=== PATIENT | female | born 1945 | race Caucasian/White ===

== ENCOUNTER 2022-01-25 15:06 | Inpatient (IN) | payer MEDICARE, BC ==
[~2022-01-25] VITALS: Ht 154.9 cm; Wt 56.7 kg
--- NOTE | 2022-01-25 16:15 | NUR ---
PT IS AT BEDSIDE WITH SPOUSE. PT IS EXTREMELY ANXIOUS AND NOT ALLOWING FOR MEDICAL CLEARANCE PROCESS SUCH EKG, BLOOD DRAW OR URINE COLLECTION. REASSURANCE PROVIDED BUT NOT TRUSTING STAFF. VERY PARANOID AT THIS TIME.
[2022-01-25] MEDS ORDERED: LOSA50TA39 PO (16:19)
[2022-01-25] MEDS ORDERED: LEVO100T10 PO (16:19)
[2022-01-25] MEDS ORDERED: LEVO88TA5 PO (16:19)
[2022-01-25] MEDS ORDERED: MIRT-121 PO (16:19)
[2022-01-25 17:13] LABS: *BILIRUBIN,URIN NEGATIVE (NEGATIVE); *CLARITY,URINE CLEAR (CLEAR); *COLOR,URINE YELLOW (YELLOW); *KETONES,URINE TRACE (NEGATIVE); *UROBILINOGEN,URINE 0.2 E.U./dl (NORMAL); LEUKOCYTE ESTERASE ,URINE 1+ (NEGATIVE); NITRITE, URINE NEGATIVE (NEGATIVE); PH,URINE 5.5 (5.0-8.0); UGLUCOSE NEGATIVE (NEGATIVE)
[2022-01-25 17:15] LABS: *BLOOD, URINE TRACE (NEGATIVE)
[2022-01-25 17:25] LABS: *AMPHETAMINE, URINE NEGATIVE (NEGATIVE); *CANNABINOID, URINE NEGATIVE (NEGATIVE); *COCCAINE, URINE NEGATIVE (NEGATIVE); *OPIATE, URINE NEGATIVE (NEGATIVE); *PHENCYCLIDINE SCREEN,URINE NEGATIVE (NEGATIVE)
--- NOTE | 2022-01-25 17:58 | NUR ---
Pt is medically cleared by Dr Gresham. Spoke to Zafar green [facility] for psych eval.
[2022-01-25] MEDS ORDERED: LORAZEPAM 0.5 MG TABLET PO ONE (18:00)
[2022-01-25 18:30] LABS: CARBON DIOXIDE 30 mmol/L (21-32); CHLORIDE 103 mmol/L (98-107); CREATININE 0.8 mg/dL (0.6-1.3); GLUCOSE 108 mg/dL (74-106); UREA NITROGEN, BLOOD 23 mg/dL (7-18)
[2022-01-25 18:31] LABS: HEMATOCRIT 45.1 % (31.2-41.9); MEAN CORPUSCULAR HEMOGLOBIN 32.2 uug (24.7-32.8); PLATELET COUNT (AUTO) 280 K/uL (179-408)
[2022-01-25 18:36] LABS: ETHANOL < 3 MG/DL (0-0)
[2022-01-25 18:37] LABS: ALANINE AMINOTRANSFERASE 32 U/L (14-59); ALKALINE PHOSPHATASE 90 U/L (50-136); ASPARTATE AMINOTRANSFERASE 29 U/L (15-37); BILIRUBIN,DIRECT 0.1 mg/dL (0.0-0.2); BILIRUBIN,TOTAL 0.6 mg/dL (0.2-1.0); TOTAL PROTEIN, SERUM 7.5 g/dL (6.4-8.2)
[2022-01-25 18:40] LABS: ACETAMINOPHEN < 2.0 ug/mL (10-30)
[2022-01-25 18:44] LABS: THYROID STIMULATING HORMONE 8.385 mIU/mL (0.358-3.740)
--- NOTE | 2022-01-25 19:09 | NUR ---
EKG performed. NSR
[2022-01-25] MEDS ORDERED: LORAZEPAM 1 MG TABLET ONE (19:47)
--- NOTE | 2022-01-25 20:02 | NUR ---
DANIE FROM THE CRISIS TEAM PLACED PATIENT ON A 5150 HOLD FOR GD.
--- NOTE | 2022-01-25 20:49 | NUR ---
PATIENT WAS TAKEN TO [facility] VIA WHEELCHAIR BY [facility] MANAGER OF REGULATORY AFFAIRS MEMBER WITH NO DISTRESS NOTED.
[2022-01-25 20:55] LABS: BACTERIA,URINE FEW /HPF (NONE SEEN); CALCIUM OXALATE CRYSTALS,UR MA /HPF (NONE SEEN); SQUAMOUS EPITHELIAL CELL,UR NONE SEEN /HPF (NONE SEEN); URINE AMORPHOUS URATE MODERATE /HPF
[2022-01-25 21:00] VITALS: BP 164/81
[2022-01-25] MEDS ORDERED: ACETAMINOPHEN 325 MG TABLET PO PRN (21:30)
[2022-01-25] MEDS ORDERED: MAG HYDROX/AL HYDROX/SIMETH 30 ML LIQUID UDC PO PRN (21:30)
[2022-01-25] MEDS ORDERED: LORAZEPAM 1 MG TABLET PO PRN (21:30)
[2022-01-25] MEDS ORDERED: MAGNESIUM HYDROXIDE 30 ML LIQUID UDC PO PRN (21:30)
--- NOTE | 2022-01-25 21:30 | NUR ---
Dr Romero was notified of patient's admission, he stated he will reconciled her medication tomorrow morning. pt calm and cooperative. V/S stable. She is no distress. PO fluids and snacks are given to patient. will continue to monitor.
--- NOTE | 2022-01-25 22:00 | NUR ---
ADMISSION NOTE: ADMITTED AT APPROX 205, A 76 YEARS OLD FEMALE TO [facility] ON A 5150 FOR GD. PATIENT LIVES AT HOME WITH HER AND SON. PER HOLD, FAMILY STATED THAT PATIENT HAS BEEN INCREASINGLY ANXIOUS, CONFUSED AND AGGRESSIVE. DURING CRISIS TEAM ASSESSMENT, PATIENT STATED THAT SHE IS BEEN EXPERIENCING SEVERE ANXIETY. HER HOLD WILL ON 01/28/22 AT 1930. UPON ADMISSION, PATIENT IS NOTED A/O X 3 ABLE TO AMBULATED WITH STEADY GAIT AND ABLE TO VERBALIZED HER FEELINGS. FACE TO FACE ASSESSMENT WAS DONE, PATIENT REFLECTS WHAT IS WRITTEN ON THE HOLD. SHE STATED THAT SHE IS BEEN HAVING SEVERE ANXIETY SINCE HER AND FAMILY ARE PLANNING FOR A LONG ROAD TRIP. PATIENT DENIED SI/HI/VH/AH. SHE EXPRESSES MILD DEPRESSION AND SHE STATED SHE TAKES REMERON FOR IT AND FOR SLEEP. PATIENT WAS GIVEN HER ADVISEMENT WELL HER BOOKLET FOR PATIENT'S RIGHTS WHEN IN MENTAL HEALTH FACILITIES. PATIENT WAS INFORMED OF THE UNIT RULES ROOM AND ROOMMATE. ALL HER BELONGINGS WERE INVENTORIED AND A SECURED LOCK CABINET. WILL CONTINUE WITH Q15 MIN CHECKS
[2022-01-26] MEDS: CEphaleXIN 500 MG CAPSULE PO SCH ×3 (07:11→20:58)
[2022-01-26 07:30] VITALS: BP 149/83
[2022-01-26 08:20] LABS: THYROID STIMULATING HORMONE 10.987 mIU/mL (0.358-3.740)
[2022-01-26] MEDS: ESCITALOPRAM OXALATE 10 MG TABLET PO SCH (09:08)
[2022-01-26] MEDS: LEVOTHYROXINE SODIUM 88 MCG TABLET PO SCH (09:08)
[2022-01-26] MEDS: LOSARTAN POTASSIUM 50 MG TABLET PO SCH (09:08)
--- NOTE | 2022-01-26 13:15 | NUR ---
Firearms Report: Tobacco Baler completed and submitted a [employer] firearms report for 5150 grave disability certifications. A copy of report has been placed in patient chart.
--- NOTE | 2022-01-26 15:09 | NUR ---
CLINT Initial Discharge Note Pt currently resides at [address] [place] [id number] with her . Pt expressed she would like to be discharged home. Pt's spouse and pt's daughter both expressed they will be ready for pt to ultimately discharge home when she is stable and able to accept help from her family. CLINT will continue to work with pt, family, and MD to ensure a safe and proper discharge plan.
--- NOTE | 2022-01-26 15:10 | NUR ---
SW Family Contact SW spoke with pt's spouse (Uriah) and pt's daughter (Celestina) and discussed treatment and discharge plan. Uriah and Celestina provided collateral information. Celestina stated pt's spouse is pt's DPOA and this SW requested copies. Pt expressed she would like to be discharged home. Pt's spouse and pt's daughter both expressed they will only be ready for pt to ultimately discharge home when she is stable and able to accept help from her family.
[2022-01-26 15:30] VITALS: BP 117/54
--- NOTE | 2022-01-26 16:13 | NUR ---
Received patient sleeping in her room. Pt. is smiley, pleasantly confused, forgetful, cooperative with nursing care, and compliant with medications. Patient ambulates independently, self care. Reassurance given. Fall and safety precautions implemented.
[2022-01-26 20:23] VITALS: BP 154/79
--- NOTE | 2022-01-26 20:30 | NUR ---
RECEIVED PATIENT IN THE HALLWAY. PATIENT NOTED A/O X 3 ABLE TO AMBULATE WITH STEADY GAIT AND ABLE TO VERBALIZED HER FEELINGS. PATIENT STATED THAT SHE IS FEELING LESS ANXIOUS LESS STRESS; HOWEVER, SHE APPEARS TO MINIMIZE HER SYMPTOMS. SHE STATED THAT SHE IS AFRAID SHE WILL NOT BE ABLE TO SLEEP TONIGHT. PATIENT WAS REASSURED AND REDIRECTED. SHE WAS REASSURED FOR HER SAFETY. SAFETY AND FALL PRECAUTIONS ARE IN PLACE. SHE WAS GIVEN PO FLUIDS AND SNACKS. V/S STABLE WILL CONTINUE TO MONITOR.
[2022-01-26] MEDS: MIRTAZAPINE 15 MG TABLET PO SCH (20:36)
--- NOTE | 2022-01-27 04:05 | NUR ---
patient was noted walking on the main hallway, she was noted anxious and disoriented. she stated, "you need to call my family, you don't understand. i need to call my family, they need to know where i am". she was oriented to reality she was also reassured for her safety and she was helped bach to bed. she was offered an Ativan but she refused at this time. will continue to monitor.
[2022-01-27] MEDS: LEVOTHYROXINE SODIUM 88 MCG TABLET PO SCH (05:44)
[2022-01-27] MEDS: CEphaleXIN 500 MG CAPSULE PO SCH ×3 (05:44→21:02)
--- NOTE | 2022-01-27 07:04 | NUR ---
patient slept for approx 7.15 hrs through the night, she was noted with mood swings, she was noted smiling and laughing for no apparently reason then she became sad and was asking to go home, "i am not supposed to be here". patient was oriented to reality. will continue to monitor,
[2022-01-27 07:30] VITALS: BP 151/87
[2022-01-27] MEDS: ESCITALOPRAM OXALATE 10 MG TABLET PO SCH (08:31)
[2022-01-27] MEDS: LOSARTAN POTASSIUM 50 MG TABLET PO SCH (08:32)
[2022-01-27 15:42] VITALS: BP 151/71
--- NOTE | 2022-01-27 16:39 | NUR ---
Patient is calm, cooperative, friendly, confused at times, disorganized. A/O X 2 to person, place. Patient is compliant with medications. Reassurance given. Fall and safety precautions implemented.
--- NOTE | 2022-01-27 16:52 | NUR ---
Patient refuses CT scan because she claims to be claustrophobic.
[2022-01-27 19:56] VITALS: BP 158/82
[2022-01-27] MEDS: MIRTAZAPINE 15 MG TABLET PO SCH (21:02)
[2022-01-27] MEDS: hydrALAZINE HCL 25 MG TABLET PO PRN (21:02)
--- NOTE | 2022-01-27 23:06 | NUR ---
GPS: Pt. refused to have her blood pressure re-checked at this time despite explanation of importance. Denies PENNY,dizziness nor any c/o pain offered. Fall precautions in place.
[2022-01-28] MEDS: CEphaleXIN 500 MG CAPSULE PO SCH ×3 (06:07→21:03)
[2022-01-28] MEDS: LEVOTHYROXINE SODIUM 88 MCG TABLET PO SCH (06:07)
[2022-01-28 07:30] VITALS: BP 153/77
[2022-01-28] MEDS: GABAPENTIN 100 MG CAPSULE PO SCH ×3 (09:21→17:04)
[2022-01-28] MEDS: ESCITALOPRAM OXALATE 10 MG TABLET PO SCH (09:22)
[2022-01-28] MEDS: LOSARTAN POTASSIUM 50 MG TABLET PO SCH (09:22)
[2022-01-28 17:23] VITALS: BP 149/91
--- NOTE | 2022-01-28 18:18 | NUR ---
Gps/Supervisor Component Assembler- Tends to hang out by the Nurses station , encouraged participation in her group therapy, refused to put on her regular clothes more comfortable using the hospital gown per pt. .
[2022-01-28] MEDS: MIRTAZAPINE 15 MG TABLET PO SCH (20:30)
[2022-01-28 20:43] VITALS: BP 152/78
--- NOTE | 2022-01-29 04:24 | NUR ---
Remain in bed all night. Continent of bowel and bladder. Tolerated po meds well. No behavioral issues noted. No signs of agitation or restless behavior noted. VSS no complaints presented during shift.
[2022-01-29] MEDS: CEphaleXIN 500 MG CAPSULE PO SCH ×3 (05:34→21:13)
[2022-01-29] MEDS: LEVOTHYROXINE SODIUM 88 MCG TABLET PO SCH (05:35)
[2022-01-29 07:30] VITALS: BP 161/98
[2022-01-29] MEDS: ESCITALOPRAM OXALATE 10 MG TABLET PO SCH (09:29)
[2022-01-29] MEDS: LOSARTAN POTASSIUM 50 MG TABLET PO SCH (09:29)
[2022-01-29] MEDS: CLONAZEPAM 0.5 MG TABLET PO SCH ×2 (09:30→16:35)
[2022-01-29] MEDS: GABAPENTIN 100 MG CAPSULE PO SCH ×3 (09:30→16:35)
--- NOTE | 2022-01-29 14:57 | NUR ---
CLINT Family Contact: CLINT called to return voice mail from pt's daughter, Celestina Alvarado, to discuss updates to treatment and discharge plan. Provided pt's daughter with resource for Family Caregiver Support Program ([phone]) and [facility] ([phone]) caregiving product manufacturing professional. CLINT provided pt's daughter with handout regarding hiring in home help.
[2022-01-29 16:00] VITALS: BP 167/87
[2022-01-29 20:00] VITALS: BP 155/73
[2022-01-29] MEDS: MIRTAZAPINE 15 MG TABLET PO SCH (20:24)
[2022-01-30] MEDS: LEVOTHYROXINE SODIUM 100 MCG TABLET PO SCH (05:51)
[2022-01-30] MEDS: CEphaleXIN 500 MG CAPSULE PO SCH ×3 (05:51→21:27)
--- NOTE | 2022-01-30 06:05 | NUR ---
GPS: Remain calm and cooperative with meds and care. slept 9 hrs through the night. resting in bed at this time. no agitation noted. continue plan of care.
[2022-01-30 07:56] VITALS: BP 152/79
[2022-01-30] MEDS: ESCITALOPRAM OXALATE 10 MG TABLET PO SCH (08:54)
[2022-01-30] MEDS: CLONAZEPAM 0.5 MG TABLET PO SCH ×2 (08:54→16:25)
[2022-01-30] MEDS: GABAPENTIN 100 MG CAPSULE PO SCH ×3 (08:54→16:24)
[2022-01-30] MEDS: LOSARTAN POTASSIUM 50 MG TABLET PO SCH (08:54)
--- NOTE | 2022-01-30 14:12 | NUR ---
GPS: Nursing Notes: Excessive Anxiety: Patient is awake and responding to her name, disoriented time at this time, forgetful, paranoid behavior, resistant to be compliant with her medications, believes that there is nothing wrong with her, redirected and reoriented during shift, impaired judgment, unable to formulate a viable plan for self care, gets easily anxious when redirected, continue to monitor for safety, continue with treatment plan.
[2022-01-30 16:18] VITALS: BP 152/81
[2022-01-30 19:54] VITALS: BP 145/71
[2022-01-30] MEDS: MIRTAZAPINE 15 MG TABLET PO SCH (20:28)
[2022-01-31] MEDS: CEphaleXIN 500 MG CAPSULE PO SCH ×3 (05:49→22:03)
[2022-01-31] MEDS: LEVOTHYROXINE SODIUM 100 MCG TABLET PO SCH (05:49)
--- NOTE | 2022-01-31 06:32 | NUR ---
GPS: Remain calm and cooperative with meds and care. slept 6.45 hrs through the night. resting in bed at this time. no agitation noted. continue plan of care.
[2022-01-31] MEDS: HYDROXYZINE PAMOATE 25 MG CAPSULE PO PRN (07:22)
[2022-01-31] MEDS: hydrALAZINE HCL 25 MG TABLET PO PRN (07:37)
[2022-01-31 07:51] VITALS: BP 165/98
[2022-01-31] MEDS: LOSARTAN POTASSIUM 50 MG TABLET PO SCH (08:19)
[2022-01-31] MEDS: ESCITALOPRAM OXALATE 10 MG TABLET PO SCH (08:20)
[2022-01-31] MEDS: GABAPENTIN 100 MG CAPSULE PO SCH ×3 (08:20→16:36)
[2022-01-31] MEDS: CLONAZEPAM 0.5 MG TABLET PO SCH ×2 (08:20→16:36)
[2022-01-31 16:11] VITALS: BP 151/76
--- NOTE | 2022-01-31 16:55 | NUR ---
GPS: Nursing Notes: Excessive Anxiety: Patient is awake and responding to her name, disorganized, gets easily anxious when redirected, impaired judgment, resistant with nursing care, believes that there is nothing wrong with her, needs a lot of prompting to be compliant with her medications, refusing to shower, stated "I don't know what to do..", redirected and reoriented during shift, unable to formulate a viable plan for self care, stated "I am going to here..", encourage to vent feelings, anxious affect, continue to monitor for safety, continue with treatment plan.
[2022-01-31 20:04] VITALS: BP 133/64
[2022-01-31] MEDS: MIRTAZAPINE 15 MG TABLET PO SCH (21:07)
[2022-01-31] MEDS: ZOLPIDEM 5 MG TABLET PO PRN (22:03)
[2022-02-01] MEDS: LEVOTHYROXINE SODIUM 100 MCG TABLET PO SCH (06:11)
[2022-02-01] MEDS: CEphaleXIN 500 MG CAPSULE PO SCH ×3 (06:11→21:29)
[2022-02-01] MEDS: LEVOTHYROXINE SODIUM 88 MCG TABLET PO SCH (07:16)
[2022-02-01 07:46] VITALS: BP 138/75
[2022-02-01] MEDS: ESCITALOPRAM OXALATE 10 MG TABLET PO SCH (08:30)
[2022-02-01] MEDS: GABAPENTIN 100 MG CAPSULE PO SCH ×3 (08:30→17:09)
[2022-02-01] MEDS: LOSARTAN POTASSIUM 50 MG TABLET PO SCH (08:31)
--- NOTE | 2022-02-01 11:28 | NUR ---
PC Hearing: Patient had 5250 probable cause hearing on 02/01/22 and it was upheld for grave disability.
--- NOTE | 2022-02-01 12:42 | NUR ---
CLINT Family Contact: SW called and spoke with pt's daughter, Celestina Alvarado ([phone]) and discussed discharge plan updates. Family is actively working on hiring a caregiver for pt upon discharge.
--- NOTE | 2022-02-01 14:59 | NUR ---
GPS: Nursing Notes: Excessive Anxiety: Patient is awake and responding to her name, poor impulse control, gets easily anxious when redirected, very resistant to be compliant with her medications, needs a lot of prompting to be compliant with her medications, depressed mood and anxious affect, feeling hopeless, stating "I don't know what to do...", continue to monitor for safety, unable to formulate a viable plan for self care, continue with treatment plan.
[2022-02-01 16:06] VITALS: BP 153/80
[2022-02-01 20:00] VITALS: BP 129/63
[2022-02-01] MEDS: MIRTAZAPINE 15 MG TABLET PO SCH (20:37)
[2022-02-02] MEDS: HYDROXYZINE PAMOATE 25 MG CAPSULE PO PRN (04:28)
--- NOTE | 2022-02-02 05:06 | NUR ---
GPS NOTES: Patient received awake in room, A&0x3. Ambulatory with steady gait. Patient requires prompting when taking medications as she is reasoning out not to take it. Patient states "I am taking too much medications and it is not helping me". Educate patient that med compliance is very important for a medications to work. Patient is very anxious and awake most of the night. Offered PRN Ambien but she refused. Encourage Relaxation and diversion technique to help patient with anxiety. Patient sleeping on and off as noted. @0455 she was on the edge of the bed, crying and making statements "I am done", "I just want to " "Let me go, and I somewherez". Assure patient to be in a safe environment. Vistaril was given as ordered. Safety strategies in place. Suicide precaution at place.
[2022-02-02] MEDS: LEVOTHYROXINE SODIUM 88 MCG TABLET PO SCH (05:52)
[2022-02-02 07:30] VITALS: BP 168/94
[2022-02-02] MEDS ORDERED: GABAPENTIN 100 MG CAPSULE PO SCH (07:45)
[2022-02-02] MEDS: LORAZEPAM 1 MG TABLET PO PRN ×2 (08:10→10:37)
[2022-02-02] MEDS: hydrALAZINE HCL 25 MG TABLET PO PRN (08:10)
[2022-02-02] MEDS: LOSARTAN POTASSIUM 50 MG TABLET PO SCH (08:15)
[2022-02-02] MEDS: ESCITALOPRAM OXALATE 10 MG TABLET PO SCH (08:15)
--- NOTE | 2022-02-02 10:07 | NUR ---
GPS: Nursing Notes: Excessive Anxiety: Patient is awake and responding to her name, poor impulse control, gets easily anxious when redirected, shouting "I am not going to take medications.. I am done.. the medications are not helping me..", explained the pros and cons of medications, needs a lot of prompting to be compliant with her medications, unable to formulate a viable plan for self care, continue to monitor for safety, continue with treatment plan.
[2022-02-02 16:42] VITALS: BP 136/71
[2022-02-02 20:00] VITALS: BP 119/63
[2022-02-02] MEDS: MIRTAZAPINE 15 MG TABLET PO SCH (20:27)
[2022-02-02] MEDS: GABAPENTIN 300 MG CAPSULE PO SCH (20:28)
[2022-02-02] MEDS: ZOLPIDEM 5 MG TABLET PO PRN (20:31)
[2022-02-03] MEDS: LEVOTHYROXINE SODIUM 88 MCG TABLET PO SCH (06:21)
--- NOTE | 2022-02-03 06:21 | NUR ---
Patient slept 7.30 hours last night. No notable anxiety during the shift. Safety Stratiges are in place. Education about stress management techniques briefly discussed along with reassurance.
[2022-02-03 07:30] VITALS: BP 129/80
[2022-02-03] MEDS: LOSARTAN POTASSIUM 50 MG TABLET PO SCH (09:15)
[2022-02-03 16:00] VITALS: BP 149/78
[2022-02-03] MEDS: LORAZEPAM 1 MG TABLET PO PRN (17:18)
--- NOTE | 2022-02-03 17:18 | NUR ---
Pt showing s/s of depression. Crying intermittently while walking the halls. Expressed increased anxiety and depressed thoughts of being here. Wants to leave. Educated on the purpose of her being here, and how she's doing. Gave Ativan 1mg po prn for anxiety relief. Will continue to monitor.
[2022-02-03 19:53] VITALS: BP 144/66
[2022-02-03] MEDS: GABAPENTIN 300 MG CAPSULE PO SCH (21:51)
[2022-02-03] MEDS: MIRTAZAPINE 15 MG TABLET PO SCH (21:51)
[2022-02-03] MEDS: ZOLPIDEM 5 MG TABLET PO PRN (21:52)
--- NOTE | 2022-02-04 04:42 | NUR ---
Received patient by the nurse's station, with an artificially bright smile. This is contrary to what was endorsed by the day shift. Other than a few questions about her medications, patient willingly took the medications with a snack. Total sleep hours have been eight so far. Fortunately, this chart writer was able to spend some time, at the start of the shift, educating the patient about stress management techniques. This patient verbalized understanding, which is an improvement from the previous zoo keeper. No acute distress or anxiety noted at this time.
[2022-02-04] MEDS: LEVOTHYROXINE SODIUM 88 MCG TABLET PO SCH (06:42)
[2022-02-04 07:30] VITALS: BP 159/83
[2022-02-04] MEDS: LOSARTAN POTASSIUM 50 MG TABLET PO SCH (08:27)
--- NOTE | 2022-02-04 11:49 | NUR ---
Gps/Sample Steamer- Had been compliant with her am medications, observed patient attending her group therapy, interacts when engaged. less fidgety , less anxious .
--- NOTE | 2022-02-04 13:31 | NUR ---
CLINT Discharge Update: CLINT called pt's psychiatrist Dr. Terence Pizarro's office ([phone]) and spoke with Elizabeth to schedule follow-up appt. Elizabeth informed pt's has scheduled appt on 02/22/22 at 2:30pm at [address] [facility] [address], [place] [address]. CLINT called pt's PCP Dr. Baldo Harris's office ([phone]) and spoke with Elizabeth to schedule post-discharge appt. Elizabeth Harris is scheduled out until May; however, Janet project scheduler will call back to assist with scheduling earlier appt. CLINT called and left voice mail for pt's therapist, Kamar Helton LCSW ([phone]) requesting call back to schedule follow-up appt.
[2022-02-04] MEDS: LORAZEPAM 1 MG TABLET PO PRN (15:48)
[2022-02-04 16:46] VITALS: BP 164/92
[2022-02-04 20:40] VITALS: BP 159/89
[2022-02-04] MEDS: MIRTAZAPINE 15 MG TABLET PO SCH (21:17)
[2022-02-04] MEDS: GABAPENTIN 300 MG CAPSULE PO SCH (21:17)
[2022-02-04] MEDS: ZOLPIDEM 5 MG TABLET PO PRN (21:21)
--- NOTE | 2022-02-05 03:12 | NUR ---
This patient was very anxious at the start of the shift. This pattern chart writer spent a good amount of time active listening and discussing the unfounded fears she was having. One of them being taking a shower. This patient had not showered for the last 6 days. After a lot of reassurance and promises of assistance, the patient agreed to shower , without incident. Patient then showed apprehension when it was time to take her medications. It is a possibility, based on the patients behavior and attitude, that she will not be medication compliant upon discharge. Also noted, there seems to be a significant portion of paranoia integrated into her anxiety. When these anxiety episode occur, the patient gets fixated on the worst case scenarios in life and the " What if ? " questions dominate the conversations. However, she eventually took the medications and was calm and quite pleasant. Safety Stratiges remain in place . This pattern chart writer will continue to monitor the patient for medication compliance. Educate and encourage her on coping skills and techniques,along with providing comfort and reassurance when needed.
[2022-02-05] MEDS: LEVOTHYROXINE SODIUM 88 MCG TABLET PO SCH (06:44)
[2022-02-05 07:30] VITALS: BP 152/77
[2022-02-05] MEDS: LOSARTAN POTASSIUM 50 MG TABLET PO SCH (08:43)
--- NOTE | 2022-02-05 11:10 | NUR ---
Gps/Leather Goods Assembler- Observed patient, attending/participating her group therapy, interacting with her peers, compliant with her routine am meds. Making her simple needs, known. .Less anxious , redirectable .
[2022-02-05 17:27] VITALS: BP 169/92
[2022-02-05 20:31] VITALS: BP 169/86
[2022-02-05] MEDS: diphenhydrAMINE 50 MG CAPSULE PO PRN (20:45)
[2022-02-05] MEDS: MELATONIN 3 MG TABLET PO SCH (20:45)
[2022-02-05] MEDS: GABAPENTIN 300 MG CAPSULE PO SCH (20:46)
[2022-02-05] MEDS: MIRTAZAPINE 15 MG TABLET PO SCH (20:46)
--- NOTE | 2022-02-06 03:09 | NUR ---
The patient was having an anxiety attack at the start of the shift d/t having a room mate. The patient did not want a room mate because she was " Afraid of her " and " She is going to steal my cloths". The room mate was not aggressive, combative or intimidating in any way shape or form, nevertheless this patient congers up reasons to validate her paranoia and anxiety. This machine sign writer moved the patient out in order to prevent further reasons for this patient to be stressed out. Literally anything and everything makes her upset, scared, anxious , confused or all of the above. Safety Stratiges in place.
[2022-02-06] MEDS: LEVOTHYROXINE SODIUM 100 MCG TABLET PO SCH (06:24)
[2022-02-06 07:43] VITALS: BP 153/95
[2022-02-06] MEDS: LOSARTAN POTASSIUM 50 MG TABLET PO SCH (08:05)
[2022-02-06 16:05] VITALS: BP 168/43
[2022-02-06] MEDS: hydrALAZINE HCL 25 MG TABLET PO PRN (16:17)
[2022-02-06] MEDS: LORAZEPAM 1 MG TABLET PO PRN (17:53)
[2022-02-06] MEDS: GABAPENTIN 300 MG CAPSULE PO SCH (21:46)
[2022-02-06] MEDS: MIRTAZAPINE 15 MG TABLET PO SCH (21:46)
[2022-02-06] MEDS: MELATONIN 3 MG TABLET PO SCH (21:46)
[2022-02-06 21:49] VITALS: BP 163/91
--- NOTE | 2022-02-06 22:18 | NUR ---
Patient still expressed evidence of being a little anxious and worried. Patient still asks and needs to know what is going on around her via asking about other patients that she has no relationship with and has never even spoke to. Pt was also worried about having trouble sleeping. After explaining that she is taking Melatonin as a sleeping aid medication, this nurse also advised/encouraged her on closing her door for the night to keep the noise in the hallway from disrupting her sleep.
[2022-02-07] MEDS: LEVOTHYROXINE SODIUM 100 MCG TABLET PO SCH (06:48)
[2022-02-07 07:57] VITALS: BP 169/86
[2022-02-07] MEDS: hydrALAZINE HCL 25 MG TABLET PO PRN (07:59)
[2022-02-07] MEDS: LOSARTAN POTASSIUM 50 MG TABLET PO SCH (09:05)
[2022-02-07 16:08] VITALS: BP 149/82
[2022-02-07] MEDS: LORAZEPAM 1 MG TABLET PO PRN (16:42)
--- NOTE | 2022-02-07 17:45 | NUR ---
Gps/Yarn Comber- Gets extremely anxious, at this time, , needed encouragement to take her prn ativan, reviewed routine medications with her , patient thinks she's taking too much medications . Patient was able to relax after taking her prn ativan .
[2022-02-07 20:00] VITALS: BP 126/74
[2022-02-07] MEDS: GABAPENTIN 300 MG CAPSULE PO SCH (20:44)
[2022-02-07] MEDS: MIRTAZAPINE 15 MG TABLET PO SCH (20:45)
[2022-02-07] MEDS: diphenhydrAMINE 50 MG CAPSULE PO PRN (20:45)
[2022-02-07] MEDS: MELATONIN 3 MG TABLET PO SCH (20:45)
[2022-02-08] MEDS: LEVOTHYROXINE SODIUM 100 MCG TABLET PO SCH (06:29)
[2022-02-08] MEDS: LEVOTHYROXINE SODIUM 88 MCG TABLET PO SCH (06:42)
[2022-02-08 07:45] VITALS: BP 135/78
[2022-02-08] MEDS: LOSARTAN POTASSIUM 50 MG TABLET PO SCH (08:38)
--- NOTE | 2022-02-08 10:27 | NUR ---
SW Family Contact: SW spoke with pt's daughter, Celestina Alvarado ([phone]) and discussed discharge plan updates. Celestina stated that she discussed with the doctor regarding her fathers positive covid test. Celestina asked for pt to stay at the hospital for additional days to give their family time for safe arrangements. This SW expressed she will discuss with Dr. Andujar regarding pt's current status and if it is needed to continue hospitalizing the pt for her well-being. Celestina is aware pt has an anticipated discharge date for this Tuesday or . Celestina stated she understands if the pt is doing well and need to discharge as well. This SW stated she will follow-up with Celestina and her father, Uriah ([facility]) ([phone]) prior to discharge.
--- NOTE | 2022-02-08 15:49 | NUR ---
GPS: Nursing Notes: Excessive Anxiety: Patient is awake and responding to her name, compliant with her medications, gets easily anxious when redirected, but following staff directions, gets preoccupied with her roommate destructive behavior, poor impulse control, constantly coming to the nursing station and telling staff what her roommate is doing, redirected during shift, unable to formulate a viable plan for self care, continue to monitor for safety, continue with treatment plan.
[2022-02-08 16:08] VITALS: BP 148/85
[2022-02-08 20:35] VITALS: BP 168/90
[2022-02-08] MEDS: GABAPENTIN 300 MG CAPSULE PO SCH (20:47)
[2022-02-08] MEDS: MELATONIN 3 MG TABLET PO SCH (20:47)
[2022-02-08] MEDS: MIRTAZAPINE 15 MG TABLET PO SCH (20:47)
[2022-02-08] MEDS: diphenhydrAMINE 50 MG CAPSULE PO PRN (20:47)
[2022-02-09] MEDS: LEVOTHYROXINE SODIUM 100 MCG TABLET PO SCH ×2 (06:22→06:35)
[2022-02-09] MEDS: LEVOTHYROXINE SODIUM 88 MCG TABLET PO SCH (06:42)
[2022-02-09 07:30] VITALS: BP 167/89
[2022-02-09] MEDS: LOSARTAN POTASSIUM 50 MG TABLET PO SCH (08:26)
[2022-02-09] MEDS: LORAZEPAM 1 MG TABLET PO PRN (08:26)
[2022-02-09] MEDS: hydrALAZINE HCL 25 MG TABLET PO PRN ×2 (08:27→20:45)
[2022-02-09 16:46] VITALS: BP 122/80
--- NOTE | 2022-02-09 16:57 | NUR ---
GPS: Nursing Notes: Excessive Anxiety: Pt is Awake and A&O x 4. Pt is cooperative with care management. Pt became increasingly anxious regarding her medication regiment, but has agreed to take them. Pt's anxiety has decreased once she had switched rooms to 145. Pt is unable to formulate a plan for self care. Will continue to monitor for safety and monitor treatment plan.
[2022-02-09 20:19] VITALS: BP 167/86
[2022-02-09] MEDS: MIRTAZAPINE 15 MG TABLET PO SCH (20:29)
[2022-02-09] MEDS: GABAPENTIN 300 MG CAPSULE PO SCH (20:30)
[2022-02-09] MEDS: MELATONIN 3 MG TABLET PO SCH (20:30)
--- NOTE | 2022-02-09 20:45 | NUR ---
RECEIVED PATIENT IN THE DAY ROOM WATCHING TV. PATIENT NOTED A/O X 2 SHE IS CALM AND PLEASANT UPON APPROACHED. PATIENT IS NOTED WITH INAPPROPRIATE LAUGHTERS, THEN SHE APPEARS SAD WITH LOW MOOD. SHE DENIED SI/HI//AH. SHE IS ABLE TO CFS. SAFETY AND FALL PRECAUTIONS ARE IN PLACE. HER V/S ARE STABLE. B/P IS ELEVATED AT 167/86 MMHG. HR 86; PT WAS GIVEN APRESOLINE 25MG PO PRN FOR SBP MORE THAN 150. WILL RECHECK LATER. SHE WAS GIVEN PO FLUIDS AND SNACKS. WILL CONTINUE TO MONITOR.
[2022-02-09] MEDS: diphenhydrAMINE 50 MG CAPSULE PO PRN (21:35)
[2022-02-09 22:00] VITALS: BP 138/80
--- NOTE | 2022-02-09 22:00 | NUR ---
B/P WAS RECHECKS. 138/80MMHG. PT IN NO DISTRESS.
[2022-02-10] MEDS: LEVOTHYROXINE SODIUM 88 MCG TABLET PO SCH (06:30)
[2022-02-10 07:30] VITALS: BP 158/78
[2022-02-10] MEDS: LOSARTAN POTASSIUM 50 MG TABLET PO SCH (08:10)
--- NOTE | 2022-02-10 12:50 | NUR ---
GPS: Nursing Notes: Excessive Anxiety: Pt is Awake and A&O x 4. Pt is not fully cooperative with care management. Pt became increasingly anxious regarding her Synthroid medication and refused to take it, stating "I'm afraid you're going to plant something for me to take. Thus, medication regiment has regressed. Pt is unable to formulate a plan for self care. Will continue to monitor for safety and monitor treatment plan.
--- NOTE | 2022-02-10 14:34 | NUR ---
CLINT Family Contact: SW contacted pt's son, Matthias ([phone]) and discussed pt's discharge to home on Tuesday by private vehicle transportation by Matthias. Matthias and pt's are aware and agreeable with the discharge plan to home on Tuesday at 12PM.
[2022-02-10] MEDS: LORAZEPAM 1 MG TABLET PO PRN (16:17)
[2022-02-10 17:23] VITALS: BP 146/76
--- NOTE | 2022-02-10 20:30 | NUR ---
RECEIVED PATIENT IN HER ROOM. PATIENT NOTED A/O X 2 TO 3 SHE IS CALM AND PLEASANT UPON APPROACHED. SHE IS ABLE TO VERBALIZED HER FEELINGS AND NEEDS. SAFETY AND FALL PRECAUTIONS ARE IN PLACE. HER V/S ARE STABLE. B/P IS ELEVATED AT 153/85 MMHG. HR 92; PT WAS GIVEN APRESOLINE 25MG PO PRN FOR SBP MORE THAN 150. WILL RECHECK LATER. SHE WAS GIVEN PO FLUIDS AND SNACKS. SHE IS REASSURED FOR HER SAFETY. SAFETY AND FALL PRECAUTIONS ARE IN PLACE. WILL CONTINUE TO MONITOR.
[2022-02-10 20:35] VITALS: BP 153/85
[2022-02-10] MEDS: hydrALAZINE HCL 25 MG TABLET PO PRN (20:46)
[2022-02-10] MEDS: GABAPENTIN 300 MG CAPSULE PO SCH (21:15)
[2022-02-10] MEDS: MELATONIN 3 MG TABLET PO SCH (21:16)
[2022-02-10] MEDS: MIRTAZAPINE 15 MG TABLET PO SCH (21:16)
[2022-02-10] MEDS: diphenhydrAMINE 50 MG CAPSULE PO PRN (21:22)
--- NOTE | 2022-02-10 22:25 | NUR ---
PATIENT'S B/P WAS RECHECKED: B/P IS 141/71 AND PULSE 86. WILL CONTINUE TO MONITOR.
[2022-02-11] MEDS: LEVOTHYROXINE SODIUM 88 MCG TABLET PO SCH (06:25)
[2022-02-11 07:30] VITALS: BP 144/72
[2022-02-11] MEDS: LOSARTAN POTASSIUM 50 MG TABLET PO SCH (08:50)
[2022-02-11] MEDS: AMLODIPINE 2.5 MG TABLET PO SCH (12:28)
--- NOTE | 2022-02-11 15:49 | NUR ---
Gps/Statistician Theoretical- Complaining lips are very dry,she does not know what to do per patient, vaseline christen applied .Fluids adequate . Patient claimed even the sound od TV bothers her, she wants it off, informed patient there are people watching TV we cant turned off . Anxious, pacing on the hallway , stares on the floor. Offered prn ativan, refused
[2022-02-11 16:24] VITALS: BP 151/77
[2022-02-11] MEDS: LORAZEPAM 1 MG TABLET PO PRN (17:46)
--- NOTE | 2022-02-11 17:47 | NUR ---
Gps/Desk Lieutenant- Encouraged to eat, refused, claimed she cant swallow, she was rubbing her throat when asked wht's wrong with her throat , claimed its dry, offered and encouraged fluids. Noted patient extreme anxiety, , staff had difficulty reassuring patient , she also verbalized she's scared, when asked scared of what she stated" i am afraid to go out there , afraid of everything" encouraged to talked to her Psychiatrist, patient thinks she takes too much medicine , here, more than any other patient and she cant handle it anymore.Patient able to take ativan 1 mg po after encouragement , stayed with patient for 2
--- NOTE | 2022-02-11 18:01 | NUR ---
Stayed with patient for 20 minuted trying to encouraged and reassured patient
[2022-02-11 20:07] VITALS: BP 155/84
[2022-02-11] MEDS: MELATONIN 3 MG TABLET PO SCH (20:27)
[2022-02-11] MEDS: MIRTAZAPINE 15 MG TABLET PO SCH (20:27)
[2022-02-11] MEDS: diphenhydrAMINE 50 MG CAPSULE PO PRN (20:27)
[2022-02-11] MEDS: GABAPENTIN 300 MG CAPSULE PO SCH (20:27)
--- NOTE | 2022-02-12 02:21 | NUR ---
The patient was extremely anxious, nervous and fearful at the start of the shift. Making statement " My is old and should not have to take care of me. I am unable to give myself a shower. I have been in here for along time and I am afraid to go outside. " The patient continued to ask over and over "When can I get my medication for sleep?" She refused to take a shower and continues to express paranoid thoughts and unfounded reasons to be stressed out. Safety stratiges are in place. The patient has an order to be discharged home today with . Despite many attempts by this telegraphic typewriter operator chief to calm patient down, she clearly is not and will not ,actively listen.
[2022-02-12] MEDS: LEVOTHYROXINE SODIUM 88 MCG TABLET PO SCH (05:32)
[2022-02-12 07:30] VITALS: BP_SYST 158
[2022-02-12] MEDS: AMLODIPINE 2.5 MG TABLET PO SCH (09:11)
[2022-02-12 09:12] VITALS: BP 158/94
[2022-02-12] MEDS: LOSARTAN POTASSIUM 50 MG TABLET PO SCH (09:12)
--- NOTE | 2022-02-12 14:05 | NUR ---
Received orders to discharge this patient to home [address], [place] [id number] [phone]) via patient's son, Matthias [phone]), at 13:30 via private vehicle transportation. All belongings were returned to patient. Medical and Psychiatric prescriptions were given. Patient was agreeable with discharge plans and signed all discharge documents. Emotional support provided. Patient left unit at 14:00. Fall and safety precautions implemented.
== END 2022-02-12 14:00 | disposition home or self-care (01) | DRG 880 ==
LOC: ER 15:06 → GPS 20:34
PROVIDERS: ADMIT Psychiatry & Neurology Psychiatry; ATTEND Internal Medicine
DX: F41.1 Generalized anxiety disorder (principal); F33.2 Major depressive disorder, recurrent severe without psychotic features; N39.0 Urinary tract infection, site not specified; F23 Brief psychotic disorder; G93.40 Encephalopathy, unspecified; E03.9 Hypothyroidism, unspecified; I10 Essential (primary) hypertension; Z20.822 Contact with and (suspected) exposure to COVID-19; Z79.899 Other long term (current) drug therapy; Z79.890 Hormone replacement therapy; F60.5 Obsessive-compulsive personality disorder; F41.0 Panic disorder [episodic paroxysmal anxiety]; M62.81 Muscle weakness (generalized); Z73.6 Limitation of activities due to disability; B96.89 Other specified bacterial agents as the cause of diseases classified elsewhere; Z85.828 Personal history of other malignant neoplasm of skin
CPT/HCPCS: 36415; 70450; 84443; 84481; 85025; 87086; 93005; A4663; G0480; Q0163